=== PATIENT | male | born 2005 ===

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

== ENCOUNTER 2024-01-01 15:39 | Outpatient (REF) | payer MEDICAID, SELFPAY ==
--- NOTE | 2024-01-01 17:15 | MHC.AU.MED ---
Medical Clearance for Hearing Instrumentation Date: 01/01/24 Patient Name: Sathya Ch Date of : 2005 Primary Care Provider: Elvis Ramsey MD We have seen your patient on 01/01/24 and have determined that they are a candidate for amplification (See accompanying report). Specifically, they would benefit from: Hearing aid use in both ears There is a statute that addresses Medical Evaluation Requirements prior to fitting a patient with a hearing aid. According to [place] statute 265 CMR:6.03(1), (a) General. Except as provided in 265 CMR 6.03(1)(b), a product development scientist shall not sell a hearing aid unless the prospective user has presented to the product development scientist a written statement signed by a licensed physician that states that the patient's hearing loss has been medically evaluated and the patient may be considered a candidate for a hearing aid. The medical evaluation must have taken place within the preceding six months. Please note: Due to the [place] Statute referenced above, we cannot accept a signature other than that of a licensed physician. ADMINISTRATIVE OPERATIONS COORDINATOR and PA signatures cannot be accepted. I am in agreement with the above recommendation. There is no medical contraindication for hearing instrumentation. Physician Signature Date Physician Name (Printed)
--- NOTE | 2024-01-02 07:28 | MHC.AU.MED ---
Medical Clearance for Hearing Instrumentation Date: 01/01/24 Patient Name: Sathya Ch Date of : 2005 Primary Care Provider: Yas Villafana MD We have seen your patient on 01/01/24 and have determined that they are a candidate for amplification (See accompanying report). Specifically, they would benefit from: Hearing aid use in both ears There is a statute that addresses Medical Evaluation Requirements prior to fitting a patient with a hearing aid. According to [place] statute 265 CMR:6.03(1), (a) General. Except as provided in 265 CMR 6.03(1)(b), a promotion specialist shall not sell a hearing aid unless the prospective user has presented to the promotion specialist a written statement signed by a licensed physician that states that the patient's hearing loss has been medically evaluated and the patient may be considered a candidate for a hearing aid. The medical evaluation must have taken place within the preceding six months. Please note: Due to the [place] Statute referenced above, we cannot accept a signature other than that of a licensed physician. ZIPPER SETTER and PA signatures cannot be accepted. I am in agreement with the above recommendation. There is no medical contraindication for hearing instrumentation. Physician Signature Date Physician Name (Printed)
--- NOTE | 2024-01-02 07:50 | MHC.AU.HA3 ---
Hearing Instrument Follow-Up- Binaural Date of Visit: 01/01/24 Left Ear: Make, Model, Color, Serial Number: Oticon Play PX 1 miniBTE-R SN: [id number] Color: Red Molder Machine Tender Repair Warranty: 05/04/2028 Molder Machine Tender Loss and Damage Warranty: USED [facility] Service Plan: 04/17/2024 Battery Size: Rechargeable Earmold/Dome/CShell/SlimTip: Microsonic M2000 full shell (red, black, white stripes) Dispensed By: Antonio [facility] Date of Fitting: May 2019 Follow-Up Summary: Accompanied by mother, Mariaelena. Lost WALSH/EM again (previously lost in May 2022 and again in February 2023). Updated audio - Hearing is stable. Per Lexie Browning, Medicaid policy now requires updated medical clearance and prior approval through insurance for L&D replacement. Signed L&D form, will fax to [employer] pending MC and PA. Requested loaner; however, did not bring old EM. Programmed old Oticon Bharti Pro BTE (OPN loaner not available) to initial fit DSL pediatric settings. Advised will not be same sound quality or optimal for hearing loss but will help while waiting for replacement. Sathya will attach old EM to loaner WALSH at home. Will call [employer] to request new EM from impression on file. Recommendations: Patient will be contacted when materials have arrived. Diagnosis Code(s): Primary Diagnosis: H90.3 Bilateral Sensorineural Hearing Loss Signature: Provider: Ravinder Willson, [facility]
== END 2024-01-01 15:40 | disposition home or self-care (01) ==
LOC: HO.SH 15:39
PROVIDERS: Visit Provider Family Medicine
DX: Z01.118 Encounter for examination of ears and hearing with other abnormal findings (principal); H90.3 Sensorineural hearing loss, bilateral
CPT/HCPCS: 92552; 92556

== ENCOUNTER 2024-03-25 14:29 | Outpatient (REF) | payer MEDICAID, SELFPAY | END 2024-03-25 14:30 | disposition home or self-care (01) | LOC: HO.HAP 14:29 | PROVIDERS: Visit Provider Family Medicine | DX: Z46.1 Encounter for fitting and adjustment of hearing aid (principal); H90.3 Sensorineural hearing loss, bilateral | CPT/HCPCS: V5241; V5264 ==

== ENCOUNTER 2025-01-14 09:46 | Outpatient (REF) | payer OTHER, SELFPAY ==
--- OUTSIDE RECORDS SUMMARY | 2025-01-14 11:05 | XMS_ITS ---
Author Name [facility] Organization Unknown Care Team Organization Name Specialty Phone Email Start Date End Da te [facility] Termed, PROVIDER Primary Care 07/17/202210/10 [facility] Yas Villafana Primary Care 06/13/20222023 [facility] JAY SWANSON Primary Care 01/17/2022 10/29/2023
--- OUTSIDE RECORDS SUMMARY | 2025-01-14 11:05 | XMS_ITS | Data Portability ---
Author Organization [facility] [employer] [facility], [address] Address [address] [place] [address] Assessment No assessment recorded. Plan of Treatment Reminders Order Date Submit Date Provider Last Modified By Organization Details Last Modified Time Details Appointments None recorded. Lab None recorded. Referral None recorded. Procedures None recorded. Surgeries None recorded. Imaging None recorded. Medication Orders sulfamethox azole 800 mg-trimetho prim 160 mg tablet 2023 024 [email or web address] [id number], [address] [place], [address], 4 10:05:05 Patient TargetsNo targets recorded. Patient Instructions Encounter Date Encounter Id Patient Instructions Last Modified By Organization Details Last Modified Time 03/23/2023 [id number] learning about rice (rest, ice, compression, and elevation) Not available 03/23/2023 11:19:24 cuts closed with stitches: care instructions Not available 03/28/2023 10:14:20 04/03/2023 [id number] learning about stitches and brigido removal [email or web address] Not available 04/03/2023 09:04:16 Reason for Referral None Reported. Problems Name Problem SNOMED Code Status Onset Date Resolution Date Notes Provider Name and Address Organization Details Recorded Time Laceration of finger of left hand [id number] 9106 Active 2023 Sarah Blas NP [address], [place], [address] , [facility] 4 10:08:29 Problem Notes None recorded. Procedures Surgical History Date Name Laterality Status Provider Name and Address Organization Details Recorded Time 4 Suture Removal completed [facility] BACA [address] [place], [address], [place] - [facility] 04/03/2023 09:09:43 4 Laceration, Simple Repair, (face/ear/no se/lip/mucos a) 2.6-5.0cm completed Sarah Blas NP [address] [place], [address], [place] - [facility] 03/28/2023 10:13:11 Imaging Results None recorded. Procedure Notes None recorded. Medical Equipment None Reported. Allergies No known drug allergies Medications Name Sig Start Date Stop Date Status Note LastModified by Organization Details LastModified Time sulfamethoxazole 800 mg-trimethoprim 160 mg tablet Take 1 tablet twice a day by oral route for 10 days. 2023 active Not Available Not Available Not Avai lable Vitals Date Recorded Pain severity - 0-10 verbal numeric rating [Score] - Reported Body height Body mass index (BMI) [Percentile] Per age and sex Body mass index (BMI) Body weight Body temperature Respiratory rate Oxygen saturation Oxygen saturation in Arterial blood by Pulse oximetry Heart rate Systolic And Diastolic Provider Name and Address Organization Details Last Updated DateTime 4 9 177.8 cm 90 % 27.3 kg/m2 19373.5 5 g 97.9 [degF] 19 /min 97 % 97 % 67 /min 126/72 mm[Hg] Natalie Callejas [place] - [facility] 4 10:04:07 Date Recorded Body height Body mass index (BMI) [Percentile] Per age and sex Body mass index (BMI) Body weight Oxygen saturation Oxygen saturation in Arterial blood by Pulse oximetry Respiratory rate Body temperature Pain severity - 0-10 verbal numeric rating [Score] - Reported Heart rate Systolic And Diastolic Provider Name and Address Organization Details Last Updated DateTime 4 177.8 cm 90 % 27.3 kg/m2 10511.5 5 g 96 % 96 % 18 /min 97.9 [degF] 0 60 /min 130/75 mm[Hg] NAVJOT BONDS [place] - [facility] 08:27:29 Social History Question Answer Notes LastModified by ShepHertz Details LastModified Time Tobacco Smoking Status Never Smoker Natalielibertad Callejas [facility] 03/23/2023 10:00:23 Have You Had A Flu Shot This Season? No Information not available 03/23/2023 Have You Had Direct Contact, Or Contact During Intimacy, With Monkeypox Rash, Scabs, Or Body Fluids From A Person With Monkeypox? No Information not available 03/23/2023 What Was The Date Of Your Most Recent Tobacco Screening? 03/23/2023 Information not available 03/23/2023 Have You Recently Traveled Abroad? No Information not available 03/23/2023 Sex: Unknown Functional Status Question Answer Note LastModified by ShepHertz Details LastModified Time Do you use any illicit or recreational drugs? No Information not available 03/23/2023 Do you or have you ever used any other forms of tobacco or nicotine? No Information not available 03/23/2023 What is your level of alcohol consumption? None Information not available 03/23/2023 Mental Status None recorded. Family History Nothing Reported. Medical History No medical history recorded. Past Encounters Encounter ID Performer Location Encounter Start Date Encounter Closed Date Diagnosis/Indication Diagnosis SNOMED-CT Code Diagnosis ICD10 Code Diagnosis IMO Codes Diagnosis Note [id number] [place] Blas [place] [address] [facility] [address] [place] [address] 03/23/2023 09:49:58 03/23/2023 11:23:32 Laceration of finger of left hand [id number] S61.211A Keep the cut dry for the first 24 to 48 hours. After this, you can shower if your doctor okays it. Pat the cut dry.Don't soak the cut, such as in a bathtub. Your doctor will tell you when it's safe to get the cut wet.If your doctor told you how to care for your cut, follow your doctor's instructio ns. If you did not get instructio ns, follow this general advice:Aft er the first 24 to 48 hours, wash around the cut with clean water 2 times a day. Don't use hydrogen peroxide or alcohol, which can slow healing.Yo u may cover the cut with a thin layer of petroleum jelly, such as Vaseline, and a nonstick bandage.Ap ply more petroleum jelly and replace the bandage as needed.Pro p up the sore area on a pillow anytime you sit or lie down during the next 3 days. Try to keep it above the level of your heart. This will help reduce swelling.A void any activity that could cause your cut to reopen.Do not remove the stitches on your own. Your doctor will tell you when to come back to have the stitches removed.Le ave Steri-Stri ps on until they fall off.Be safe with medicines. Read and follow all instructio ns on the label.If the doctor gave you a prescripti on medicine for pain, take it as prescribed .If you are not taking a prescripti on pain medicine, ask your doctor if you can take an over-the-c ounter medicine. [id number] COR[facility] BACA [address] [facility] [address] [place] [address] 04/03/2023 08:08:18 04/03/2023 09:05:57 Removal of suture [id number] Z48.02 Sutures were removed for you today. The area currently looks good and well healed. I would start Mederma cream on the area - 2 times daily for 60 days to help reduce scarring Make sure you use Sun Screen on the area for the next 6 months to help also reduces swelling and scarring. The UV rays can make the scar more visible - since that is new soft skin. You do not have the keep the area covered any longer. Don't hesitate to be seen again if you develop any of the followin. Increased skin redness around the healing laceration 2. Warmth around the wound3. Purulent Discharge4 . Skin Discolorat ion/Black Skin5. Pain Laceration of finger of left hand [id number] S61.211A Health Concerns Section Related Observation LastModified by Organization Kevin osborn LastModified Time None Recorded Concern Status LastModified by Organization Details LastModified Time None Recorded Advance Directives Directive None Recorded Payers Insurance Date Sequence Insurance Name Policy Number Policy Slaughter Covered Member ID Slaughter Member ID Guarantor Name 04/17/2023 1 [facility] (MEDICAID REPLACEMENT - HMO) LEFTY Ch [id number] Sathya Ch Notes Date Note Type Note Provider Name and Address Organization Details Recorded Time 4 text/htm l Finger PainReported by PatientHistoryFor location, patient reportsproximal phalanxbut reportslocation: leftandindex finger. For source of patient information, patient reportssource of patient information __(and his father). For onset, patient reportsabrupt onset.Neurovascular StatusFor neurovascular status, patient reportsno numbness or tingling.SymptomsFor symptoms, patient reportspain with rom,swelling, andlaceration/abrasion.Treat mentFor treatment, patient reportsice. Patient presents accompanied by his father with laceration of his left index. Was carrying a wooden box at school , which slipped , pt tried to catch it , then the corner slid on the finger causing a long lac . bleeding was not controlled on site despite pressure. TD UTD per father . finger is painful , but able to move , denies numbness Sarah Blas NP [address] [place], [address], [employer] 03/28/2023 10:14:42 4 text/htm l Suture/Staple removalReported by Patientencounter background informationFor source of patient information, patient reportspatientandpatient arrived at urgent care ambulatory.HPIFor context, patient reportssutures. For quality, patient reportsnot bleeding,much improved, andnon tender. For duration, patient days. For asaf associated symptoms, patient reportsno drainage,no ecchymosis,no fever,no redness, andno warmth. For location, (finger - left 2nd digit).No significant problems. Has kept it covered. Feels like ROM is improving. Denies Numbness. CORBIN BACA [address] [place], [address], [place] [email or web address] 04/03/2023 09:10:05
--- NOTE | 2025-01-14 12:38 | MHC.AU.HA3 ---
Hearing Instrument Follow-Up- Binaural Date of Visit: 01/14/25 Left Ear: Make, Model, Color, Serial Number: Oticon Play PX 1 miniBTE-R SN: [id number] Color: Red Professional Application Designer Repair Warranty: 05/04/2028 Professional Application Designer Loss and Damage Warranty: USED [facility] Service Plan: 04/17/2024 Battery Size: Rechargeable Earmold/Dome/CShell/SlimTip: Microsonic M2000 full shell (black) Dispensed By: [facility] Date of Fittin04/17/2023 Follow-Up Summary: WALSH/EM dropped off with broken tube. Tubing hard, discolored, in two pieces. Cleaned WALSH (1). Cleaned EM (1). Replaced tubing (1). [id number] x3. Vacuumed microphones. Ran through dehumidifier. Updated firmware. To front office to call for pickers material handlers. Recommendations: Hearing instrument follow-up or maintenance as needed. Please contact our clinic with any questions or concerns. Diagnosis Code(s): Primary Diagnosis: H90.3 Bilateral Sensorineural Hearing Loss Signature: Provider: Ravinder Willson, [facility]
== END 2025-01-14 09:47 | disposition home or self-care (01) ==
LOC: HO.HAP 09:46
PROVIDERS: Visit Provider Family Medicine
DX: Z46.1 Encounter for fitting and adjustment of hearing aid (principal); H90.3 Sensorineural hearing loss, bilateral
CPT/HCPCS: 92592; 99499